=== PATIENT | female | born 1990 | race Two or more races ===

== ENCOUNTER 2017-08-17 10:25 | Observation (INO) | payer MEDICAID ==
[~2017-08-17] VITALS: Ht 152.4 cm; Wt 68.0 kg
== END 2017-08-17 11:30 | disposition home or self-care (01) | DRG 566 ==
LOC: LDRP 10:25
PROVIDERS: ADMIT Obstetrics & Gynecology; ATTEND Obstetrics & Gynecology
DX: O26.893 Other specified pregnancy related conditions, third trimester (principal); R10.2 Pelvic and perineal pain; O62.9 Abnormality of forces of labor, unspecified; Z3A.31 31 weeks gestation of pregnancy
CPT/HCPCS: 59025; 81002; G0378

== ENCOUNTER 2017-09-19 12:15 | Observation (INO) | payer MEDICAID ==
[2017-09-19] MEDS ORDERED: PREN-153 OR (13:15)
== END 2017-09-19 13:45 | disposition home or self-care (01) | DRG 566 ==
LOC: LDRP 12:15
PROVIDERS: ADMIT Obstetrics & Gynecology; ATTEND Obstetrics & Gynecology
DX: O36.5930 Maternal care for other known or suspected poor fetal growth, third trimester, not applicable or unspecified (principal); Z3A.36 36 weeks gestation of pregnancy
CPT/HCPCS: 59025; 76818; 81002; G0378

== ENCOUNTER 2017-09-21 11:58 | Observation (INO) | payer MEDICAID ==
[~2017-09-21 11:58] MED LIST: PREN-153 OR
== END 2017-09-21 13:25 | disposition home or self-care (01) | DRG 566 ==
LOC: LDRP 11:58
PROVIDERS: ADMIT Obstetrics & Gynecology; ATTEND Obstetrics & Gynecology
DX: O36.5930 Maternal care for other known or suspected poor fetal growth, third trimester, not applicable or unspecified (principal); O26.893 Other specified pregnancy related conditions, third trimester; O62.9 Abnormality of forces of labor, unspecified; R51 Headache; Z3A.36 36 weeks gestation of pregnancy
CPT/HCPCS: 59025; 76818; 81002; G0378

== ENCOUNTER 2017-09-25 11:38 | Observation (INO) | payer MEDICAID | END 2017-09-25 13:05 | disposition home or self-care (01) | DRG 566 | LOC: LDRP 11:38 | PROVIDERS: ADMIT Obstetrics & Gynecology; ATTEND Obstetrics & Gynecology | DX: O26.893 Other specified pregnancy related conditions, third trimester (principal); Z3A.37 37 weeks gestation of pregnancy | CPT/HCPCS: 59025; 76818; 81002; G0378 ==

== ENCOUNTER 2017-09-27 13:58 | Observation (INO) | payer MEDICAID | END 2017-09-27 15:50 | disposition home or self-care (01) | DRG 566 | LOC: LDRP 13:58 | PROVIDERS: ADMIT Obstetrics & Gynecology; ATTEND Obstetrics & Gynecology | DX: O36.5930 Maternal care for other known or suspected poor fetal growth, third trimester, not applicable or unspecified (principal); Z3A.37 37 weeks gestation of pregnancy | CPT/HCPCS: 59025; 76818; 81002; G0378 ==

== ENCOUNTER 2017-09-29 14:00 | Observation (INO) | payer MEDICAID | END 2017-09-29 15:35 | disposition home or self-care (01) | DRG 566 | LOC: LDRP 14:00 | PROVIDERS: ADMIT Obstetrics & Gynecology; ATTEND Obstetrics & Gynecology | DX: O36.5930 Maternal care for other known or suspected poor fetal growth, third trimester, not applicable or unspecified (principal); Z3A.37 37 weeks gestation of pregnancy | CPT/HCPCS: 59025; 76818; 81002; G0378 ==

== ENCOUNTER 2017-09-30 10:30 | Observation (INO) | payer MEDICAID | END 2017-09-30 12:35 | disposition home or self-care (01) | DRG 566 | LOC: LDRP 10:30 | PROVIDERS: ADMIT Specialist; ATTEND Specialist | DX: O36.5930 Maternal care for other known or suspected poor fetal growth, third trimester, not applicable or unspecified (principal); O62.9 Abnormality of forces of labor, unspecified; Z3A.36 36 weeks gestation of pregnancy | CPT/HCPCS: 59025; 76805; 76818; 81002; G0378 ==

== ENCOUNTER 2017-10-02 11:05 | Observation (INO) | payer MEDICAID | END 2017-10-02 13:05 | disposition home or self-care (01) | DRG 566 | LOC: LDRP 11:05 | PROVIDERS: ADMIT Specialist; ATTEND Specialist | DX: O36.5930 Maternal care for other known or suspected poor fetal growth, third trimester, not applicable or unspecified (principal); O26.893 Other specified pregnancy related conditions, third trimester; N89.8 Other specified noninflammatory disorders of vagina; O62.9 Abnormality of forces of labor, unspecified; Z3A.38 38 weeks gestation of pregnancy | CPT/HCPCS: 59025; 76818; 81002; G0378 ==

== ENCOUNTER 2017-10-05 12:00 | Observation (INO) | payer MEDICAID ==
[~2017-10-05] VITALS: Ht 152.4 cm; Wt 71.7 kg
== END 2017-10-05 13:50 | disposition home or self-care (01) | DRG 566 ==
LOC: LDRP 12:00
PROVIDERS: ADMIT Specialist; ATTEND Specialist
DX: O62.9 Abnormality of forces of labor, unspecified (principal); R10.2 Pelvic and perineal pain; M54.9 Dorsalgia, unspecified; Z3A.38 38 weeks gestation of pregnancy
CPT/HCPCS: 59025; 76818; 81002; G0378

== ENCOUNTER 2017-10-07 19:05 | Observation (INO) | payer MEDICAID ==
[2017-10-07 22:14] LABS: Urine Amorphous Crystal FEW /hpf (None Seen); Urine Bacteria MANY /hpf (None Seen); Urine Blood Negative /uL (Negative); Urine Mucus FEW (None Seen); Urine Specific Gravity 1.012 (1.001-1.035); Urine WBC 21 /hpf (0 - 5)
[2017-10-07 22:22] LABS: Alcohol, Urine < 3.0 mg/dL (0-5); Amphetamine Screen, Urine NEGATIVE (NEGATIVE); Barbiturate Scree,Urine NEGATIVE (NEGATIVE); Benzodiazephine Screen, Urine NEGATIVE (NEGATIVE); Cannabinoid Screen, Urine NEGATIVE (NEGATIVE); Cocaine Screen, Urine NEGATIVE (NEGATIVE); Opiate Scree,Urine NEGATIVE (NEGATIVE); Phencyclidine Screen, Urine NEGATIVE (NEGATIVE)
== END 2017-10-07 21:36 | disposition home or self-care (01) | DRG 566 ==
LOC: LDRP 19:05
PROVIDERS: ADMIT Obstetrics & Gynecology; ATTEND Obstetrics & Gynecology
DX: O36.5930 Maternal care for other known or suspected poor fetal growth, third trimester, not applicable or unspecified (principal); Z3A.38 38 weeks gestation of pregnancy
CPT/HCPCS: 59025; 76805; 76818; 80307; 81001; 81002; G0378

== ENCOUNTER 2017-10-09 11:00 | Inpatient (IN) | payer MEDICAID ==
[~2017-10-09] VITALS: Ht 160 cm; Wt 71.7 kg
[2017-10-09] MEDS: LACTATED RINGER'S 1,000 ML IV SCH ×2 (03:00→23:26)
[2017-10-09] MEDS ORDERED: LACT. RINGERS/OXYTOCIN 20UNITS 1,000 ML IV SCH (11:17)
[2017-10-09] MEDS ORDERED: LIDOCAINE 2%HCL (LOCAL ANESTH.) INJ 20ML MDV IJ ONE (11:30)
[2017-10-09] MEDS ORDERED: METHYLERGONOVINE MALEATE 0.2 MG/ML AMP IM PRN (11:30)
[2017-10-09] MEDS ORDERED: PHISODERM TOP SOLN 240ML BTL TOP PRN (11:30)
[2017-10-09] MEDS ORDERED: PENICILLIN G POT 5MIL/D5 50ML 50 ML IV ONE (11:30)
[2017-10-09] MEDS ORDERED: NALBUPHINE HCL 10 MG/1ml INJECTION IM PRN (11:30)
[2017-10-09] MEDS ORDERED: WITCH HAZEL-GLYCERIN PAD TOP PRN (11:30)
[2017-10-09] MEDS ORDERED: DERMOPLAST 60ML BOTTLE TOP PRN (11:30)
[2017-10-09 12:18] LABS: Basophils # (auto) 0 uL; Basophils % (auto) 0.3 % (0.0-2.0); Eosinophils # (auto) 0.1 uL; Eosinophils % (auto) 1.2 % (0.0-7.0); Hematocrit 33.9 % (36.0-46.0); Hemoglobin 11.8 g/dL (12.2-16.2); Lymphocytes # (auto) 1.8 uL; Mean Corpuscular Hgb Conc. 34.9 g/dL (32.0-36.0); Mean Corpuscular Volume 94.7 fL (80.0-100.0); Monocytes % (auto) 8.8 % (0.0-12.0); Neutrophils # (auto) 8.3 uL; Neutrophils % (auto) 73.7 % (37.0-80.0); Nucleated Red Blood Cells % 0.1 %; Platelet Count (auto) 184 10^3/uL (140-450); Red Blood Cells 3.58 10^6/uL (4.0-5.20); Red Cell Distribution Width 12.8 % (11.8-14.3); White Blood Cell 11.3 10^3/uL (4.4-10.8)
[2017-10-09 12:40] LABS: Urine Bacteria FEW /hpf (None Seen); Urine Blood Negative /uL (Negative); Urine Mucus FEW (None Seen); Urine Specific Gravity 1.014 (1.001-1.035); Urine WBC 21 /hpf (0 - 5)
[2017-10-09 12:40] LABS: INR 0.86 (0.9-1.15); Partial Thromboplastin Time 25.7 sec (22.64-33.71); Prothrombin Time 9.4 sec (9.37-12.3)
[2017-10-09 12:44] LABS: Albumin 2.7 g/dL (3.4-5.0); BUN/Creatinine Ratio 13.6; Bilirubin, Total 0.2 mg/dL (0.2-1.0); Calcium 8.6 mg/dL (8.5-10.1); Potassium 3.8 mmol/L (3.5-5.1); Total Protein 6.3 g/dL (6.4-8.2)
[2017-10-09 13:00] LABS: Alcohol, Urine < 3.0 mg/dL (0-5); Amphetamine Screen, Urine NEGATIVE (NEGATIVE); Barbiturate Scree,Urine NEGATIVE (NEGATIVE); Benzodiazephine Screen, Urine NEGATIVE (NEGATIVE); Cannabinoid Screen, Urine NEGATIVE (NEGATIVE); Cocaine Screen, Urine NEGATIVE (NEGATIVE); Opiate Scree,Urine NEGATIVE (NEGATIVE); Phencyclidine Screen, Urine NEGATIVE (NEGATIVE)
[2017-10-09] MEDS: PENICILLIN G POTASSIUM 2,500,000 UNITS in D5W 5% 50 ML IV SCH ×2 (16:42→20:40)
[2017-10-10] MEDS ORDERED: BUTORPHANOL TARTRATE 2 MG/1 ML VIAL ONE (00:47)
[2017-10-10] MEDS: PENICILLIN G POTASSIUM 2,500,000 UNITS in D5W 5% 50 ML IV SCH ×2 (00:50→04:47)
[2017-10-10] MEDS ORDERED: LIDOCAINE HCL 2 %PF INJ 10ML AMP IJ ONE ×2 (02:00→02:52)
[2017-10-10] MEDS ORDERED: fentaNYL CITRATE 100 MCG/2 ML VL IV ONE ×2 (02:00→03:15)
[2017-10-10] MEDS ORDERED: fentaNYL W ROPIVACAINE 150 ML EPI SCH ×2 (02:00→03:15)
[2017-10-10] MEDS ORDERED: ePHEDrine SULFATE 50 MG/ML AMP IV ONE ×2 (02:00→03:15)
[2017-10-10] MEDS ORDERED: NALOXONE HCL 0.4 MG/ML VIAL IV ONE ×2 (02:00→03:15)
[2017-10-10] MEDS ORDERED: TERBUTALINE SULFATE 1 MG/ML 1ML VIAL SC ONE ×2 (02:28→02:29)
[2017-10-10] MEDS ORDERED: SODIUM CHLORIDE 0.9% 500 ML IV PRN (03:01)
[2017-10-10] MEDS: LACTATED RINGER'S 1,000 ML IV SCH ×3 (04:54→16:22)
[2017-10-10] MEDS ORDERED: SUCCINYLCHOLINE CHLORIDE 20 MG/ML 10ML VIAL IV ONE (06:50)
[2017-10-10] MEDS ORDERED: OXYTOCIN 10UNIT/ML 1ML VIAL IV ONE (07:21)
[2017-10-10] MEDS ORDERED: fentaNYL CITRATE 100 MCG/2 ML VL ONE ×2 (07:24→08:00)
[2017-10-10] MEDS ORDERED: MIDAZOLAM HCL 1MG/1ML-2 ML VIAL ONE (08:01)
[2017-10-10] MEDS ORDERED: ePHEDrine SULFATE 50 MG/ML AMP IV PRN (08:30)
[2017-10-10] MEDS ORDERED: MORPHINE SULF INJ 2 MG/ML SYRINGE 1ML IV PRN (08:30)
[2017-10-10] MEDS ORDERED: hydrALAZINE HCL 20 MG/ML VL IV PRN (08:30)
[2017-10-10] MEDS ORDERED: MORPHINE SULFATE 4 MG/ML SYR/VIAL IV PRN ×2 (08:30→16:30)
[2017-10-10] MEDS ORDERED: ONDANSETRON HCL 4 MG/2 ML VIAL IV PRN (08:30)
[2017-10-10] MEDS ORDERED: ceFAZolin 1GM/50ML 50 ML IV SCH (08:30)
[2017-10-10] MEDS ORDERED: ONDANSETRON HCL 4 MG/2 ML VIAL IV ONE (08:30)
[2017-10-10 11:07] VITALS: BP 112/66
[2017-10-10] MEDS: KETOROLAC TROMETH 30 MG/ML 1ML VIAL IV SCH ×2 (11:48→18:00)
[2017-10-10] MEDS: ceFAZolin 1GM/50ML 50 ML IV SCH ×2 (15:21→23:13)
[2017-10-10 15:22] VITALS: BP 98/57
[2017-10-10] MEDS: MORPHINE SULFATE 4 MG/ML SYR/VIAL IV PRN ×2 (16:46→22:58)
[2017-10-10 16:58] VITALS: BP 100/65
[2017-10-10 19:00] VITALS: BP 93/59
[2017-10-10 23:00] VITALS: BP 101/50
[2017-10-11] VITALS (8 sets, daily range): BP systolic 96–124; BP diastolic 53–69
[2017-10-11] MEDS: KETOROLAC TROMETH 30 MG/ML 1ML VIAL IV SCH ×3 (00:03→12:00)
[2017-10-11] MEDS: LACTATED RINGER'S 1,000 ML IV SCH ×2 (00:22→08:22)
[2017-10-11 06:51] LABS: Basophils # (auto) 0.1 uL; Basophils % (auto) 0.4 % (0.0-2.0); Eosinophils # (auto) 0.1 uL; Eosinophils % (auto) 0.8 % (0.0-7.0); Hematocrit 32.5 % (36.0-46.0); Hemoglobin 11.1 g/dL (12.2-16.2); Lymphocytes # (auto) 1.6 uL; Lymphocytes % (auto) 12.6 % (10.0-50.0); Mean Corpuscular Hemoglobin 32.9 pg (28.0-32.0); Mean Corpuscular Hgb Conc. 34.2 g/dL (32.0-36.0); Mean Corpuscular Volume 96.3 fL (80.0-100.0); Monocytes # (auto) 1.1 uL; Monocytes % (auto) 8.9 % (0.0-12.0); Neutrophils # (auto) 9.7 uL; Neutrophils % (auto) 77.3 % (37.0-80.0); Platelet Count (auto) 161 10^3/uL (140-450); Red Blood Cells 3.38 10^6/uL (4.0-5.20); Red Cell Distribution Width 13.1 % (11.8-14.3); White Blood Cell 12.5 10^3/uL (4.4-10.8)
[2017-10-11] MEDS ORDERED: BISACODYL 10 MG RECT SUPP PR PRN (07:00)
[2017-10-11] MEDS: ceFAZolin 1GM/50ML 50 ML IV SCH (07:23)
[2017-10-11] MEDS: DOCUSATE SOD 100 MG CAP PO SCH ×2 (10:12→22:00)
[2017-10-11] MEDS: DOCUSATE CALCIUM 240 MG CAP PO SCH (10:12)
[2017-10-11] MEDS: HYDROcodone-ACET 5/325MG TAB PO PRN ×3 (10:15→22:43)
[2017-10-11] MEDS ORDERED: SIMETHICONE 80 MG CHEWABLE TABLET PO SCH (12:00)
[2017-10-11] MEDS: IBUPROFEN 800 MG TAB PO PRN (13:02)
[2017-10-11] MEDS ORDERED: SIMETHICONE 80 MG CHEWABLE TABLET PO PRN (13:15)
[2017-10-12 03:00] VITALS: BP 90/57
[2017-10-12] MEDS: HYDROcodone-ACET 5/325MG TAB PO PRN ×3 (04:05→20:48)
[2017-10-12 07:00] VITALS: BP 102/60
[2017-10-12] MEDS: DOCUSATE SOD 100 MG CAP PO SCH ×2 (09:15→22:00)
[2017-10-12] MEDS: DOCUSATE CALCIUM 240 MG CAP PO SCH (09:15)
[2017-10-12] MEDS: IBUPROFEN 800 MG TAB PO PRN (10:28)
[2017-10-12 11:00] VITALS: BP 108/62
[2017-10-12 15:00] VITALS: BP 110/60
[2017-10-12 19:00] VITALS: BP 98/56
[2017-10-12 23:00] VITALS: BP 106/71
[2017-10-13] MEDS: IBUPROFEN 800 MG TAB PO PRN (01:11)
[2017-10-13 04:00] VITALS: BP 103/60
[2017-10-13 07:00] VITALS: BP 103/58
[2017-10-13] MEDS: HYDROcodone-ACET 5/325MG TAB PO PRN (07:13)
[2017-10-13] MEDS: DOCUSATE CALCIUM 240 MG CAP PO SCH (10:00)
[2017-10-13] MEDS: DOCUSATE SOD 100 MG CAP PO SCH (10:00)
[2017-10-13 11:00] VITALS: BP 115/69
== END 2017-10-13 13:45 | disposition home or self-care (01) | DRG 540 ==
LOC: LDRP 11:00
PROVIDERS: ADMIT Specialist; ATTEND Specialist
PROC: 10D00Z1 Extraction of Products of Conception, Low, Open Approach (ICD-10-PCS; principal; 2017-10-10 07:21)
DX: O32.3XX0 Maternal care for face, brow and chin presentation, not applicable or unspecified (principal); O36.5930 Maternal care for other known or suspected poor fetal growth, third trimester, not applicable or unspecified; O99.824 Streptococcus B carrier state complicating childbirth; O69.89X0 Labor and delivery complicated by other cord complications, not applicable or unspecified; Z37.0 Single live birth; Z3A.39 39 weeks gestation of pregnancy; Z91.040 Latex allergy status; Z91.010 Allergy to peanuts; Z88.8 Allergy status to other drugs, medicaments and biological substances; Z91.018 Allergy to other foods
CPT/HCPCS: 36415; 51702; 59025; 62282; 80053; 80307; 81001; 85025; 85610; 85730; 86850; 86900; 86901; 94762; 96361; 96365; 96366; 96372; 96374; 96375; J0330; J0690; J1885; J2250; J2540; J2590; J3010; J7060

== ENCOUNTER 2019-07-14 11:43 | Emergency (ER) | payer MEDICAID ==
[2019-07-14 12:05] LABS: Basophils # (auto) 0.1 uL; Basophils % (auto) 0.9 % (0.0-2.0); Eosinophils # (auto) 0.2 uL; Eosinophils % (auto) 1.9 % (0.0-7.0); Hematocrit 41.3 % (36.0-46.0); Hemoglobin 14.1 g/dL (12.2-16.2); Lymphocytes # (auto) 1.8 uL; Lymphocytes % (auto) 19.5 % (10.0-50.0); Mean Corpuscular Hemoglobin 31.1 pg (28.0-32.0); Mean Corpuscular Hgb Conc. 34.1 g/dL (32.0-36.0); Monocytes # (auto) 0.8 uL; Neutrophils # (auto) 6.6 uL; Neutrophils % (auto) 69.7 % (37.0-80.0); Nucleated Red Blood Cells % 0.1 %; Platelet Count (auto) 236 10^3/uL (140-450); Red Blood Cells 4.54 10^6/uL (4.0-5.20); Red Cell Distribution Width 13.5 % (11.8-14.3); White Blood Cell 9.4 10^3/uL (4.4-10.8)
[2019-07-14 13:33] VITALS: BP 109/52
== END 2019-07-14 14:19 | disposition home or self-care (01) ==
LOC: ER 11:43
DX: O03.9 Complete or unspecified spontaneous abortion without complication (principal); Z91.018 Allergy to other foods; Z91.010 Allergy to peanuts; Z3A.01 Less than 8 weeks gestation of pregnancy
CPT/HCPCS: 36415; 76801; 84702; 85025